=== PATIENT | female | born 1960 | race Caucasian/White ===

== ENCOUNTER 2017-07-30 05:40 | Emergency (ER) | payer MEDICAID ==
[~2017-07-30] VITALS: Ht 165.1 cm; Wt 51.7 kg
[~2017-07-30 05:40] MED LIST: ALBU18HF2 IH; DIPH-423 PO; HYDR-569 PO; PHEN-716 PO
[2017-07-30 05:50] VITALS: BP 126/88
[2017-07-30 07:02] LABS: BASOPHILS % (AUTO) 0.3 % (0-1); EOSINOPHILS # (AUTO) 0.2 X10'3 (0-0.9); HEMATOCRIT 39.4 % (35.0-45.0); LYMPHOCYTES % (AUTO) 11.3 % (21-51); MEAN CORPUSCULAR HEMOGLOBIN 33.1 PG (27.0-31.0); MEAN CORPUSCULAR HGB CONC 35.6 % (33.0-36.5); MEAN CORPUSCULAR VOLUME 92.9 FL (78-98); MONOCYTES # (AUTO) 0.4 X10'3 (0-0.9); MONOCYTES % (AUTO) 4.4 % (2-12); PLATELET COUNT 270 X10'3 (140-440); RED BLOOD COUNT 4.24 X10'6 (4.20-5.60); RED CELL DISTRIBUTION WIDTH 13.7 % (11.5-14.5); WHITE BLOOD COUNT 8.6 X10'3 (4.5-11.0)
[2017-07-30 07:07] LABS: CLARITY,URINE Clear (Clear); COLOR,URINE Yellow (Yellow); GLUCOSE, URINE Negative (Neg); KETONES,URINE 15 mg/dl (Neg); LEUKOCYTE ESTERASE ,URINE Negative (Neg); NITRITES, URINE Negative (Neg); OCCULT BLOOD,URINE Trace-Intact (Neg); PH,URINE 5.5 (4.8-8.0); PROTEIN,URINE 30 mg/dl (Neg)
[2017-07-30 07:09] LABS: UA COLLECTION TYPE CLN CATCH MIDSTREAM
[2017-07-30 07:16] LABS: BACTERIA,URINE NONE SEEN /HPF (Neg); HYALINE CASTS 0-3 /LPF (NEGATIVE); MUCUS STRANDS NONE SEEN /LPF (Neg); RBC,URINE 0-2 /HPF (0-2); SQUAMOUS EPITHELIAL CELL,UR NONE SEEN /LPF (FEW); WBC,URINE NONE SEEN /HPF (0-4)
[2017-07-30 07:18] LABS: URINE AMPHETAMINE SCREEN POSITIVE (Neg); URINE BARBITUATE SCREEN NEGATIVE (Neg); URINE BENZODIAZEPINES SCREEN NEGATIVE (Neg); URINE CANNABINOID SCREEN POSITIVE (Neg); URINE COCAINE SCREEN NEGATIVE (Neg); URINE METHADONE SCREEN NEGATIVE (Neg); URINE OPIATE SCREEN POSITIVE (Neg); URINE PHENCYCLIDINE SCREEN NEGATIVE (Neg)
[2017-07-30 07:26] LABS: ALANINE AMINOTRANSFERASE 32 U/L (12-78); ALBUMIN 4.4 G/DL (3.4-5.0); ALKALINE PHOSPHATASE 151 IU/L (46-116); ANION GAP 12 (8-16); ASPARTATE AMINO TRANSFERASE 31 U/L (10-37); BILIRUBIN,TOTAL 1.2 MG/DL (0.1-1.0); BLOOD UREA NITROGEN 17 MG/DL (7-18); BUN/CREATININE RATIO 24.3 (6.6-38.0); CALCIUM 9.8 MG/DL (8.5-10.1); CHLORIDE 97 MMOL/L (99-107); ETHANOL < 0.010 GM/DL (0.0-0.010); GLUCOSE 78 MG/DL (70-104); POTASSIUM 3.8 MMOL/L (3.5-5.1); SODIUM 138 MMOL/L (135-145); TOTAL CARBON DIOXIDE 29.4 MMOL/L (24-32); TOTAL PROTEIN 8.6 G/DL (6.4-8.2); eGFR 87 ML/MIN
== END 2017-07-30 07:52 | disposition left against medical advice (07) ==
LOC: ER 05:45
DX: F20.9 Schizophrenia, unspecified (principal); G89.29 Other chronic pain; F12.10 Cannabis abuse, uncomplicated; F15.10 Other stimulant abuse, uncomplicated; Z59.0 Homelessness; Z79.899 Other long term (current) drug therapy
CPT/HCPCS: 36415; 80053; 80305; 80320; 81001; 84443; 85025; 99284

== ENCOUNTER 2017-08-04 18:15 | Emergency (ER) | payer MEDICAID ==
[~2017-08-04] VITALS: Ht 165.1 cm; Wt 54.0 kg
[2017-08-04] MEDS ORDERED: albuterol 2.5 MG/3 ML nebule NEB ONE (20:20)
[2017-08-04] MEDS ORDERED: ALBU8.5H8 IH (20:44)
[2017-08-04] MEDS ORDERED: METH4TAB3 PO (20:44)
[2017-08-04] MEDS ORDERED: GUAI600T45 PO (20:44)
[2017-08-04] MEDS ORDERED: AZIT-57 PO (20:44)
[2017-08-04 20:50] VITALS: BP 125/55
== END 2017-08-04 20:50 | disposition home or self-care (01) ==
LOC: ER 18:16
DX: J06.9 Acute upper respiratory infection, unspecified (principal); F10.10 Alcohol abuse, uncomplicated; F15.10 Other stimulant abuse, uncomplicated; J98.01 Acute bronchospasm; F17.200 Nicotine dependence, unspecified, uncomplicated; F12.10 Cannabis abuse, uncomplicated
CPT/HCPCS: 71045; 94640; 94760; 99283

== ENCOUNTER 2017-09-13 12:00 | Emergency (ER) | payer MEDICAID ==
[~2017-09-13 12:00] MED LIST changes: +ALBU8.5H8 IH; +GUAI600T45 PO; +METH4TAB3 PO
== END 2017-09-13 12:30 | disposition left against medical advice (07) ==
LOC: ER 12:01
DX: Z53.21 Procedure and treatment not carried out due to patient leaving prior to being seen by health care provider (principal)

== ENCOUNTER 2017-10-29 18:01 | Emergency (ER) | payer MEDICAID ==
[~2017-10-29] VITALS: Ht 165.1 cm; Wt 49.9 kg
[2017-10-29 18:12] VITALS: BP 123/84
== END 2017-10-29 22:30 | disposition left against medical advice (07) ==
LOC: ER 18:02
DX: M79.675 Pain in left toe(s) (principal); M79.674 Pain in right toe(s); Z53.21 Procedure and treatment not carried out due to patient leaving prior to being seen by health care provider

== ENCOUNTER 2017-10-31 10:40 | Emergency (ER) | payer MEDICAID ==
[~2017-10-31] VITALS: Ht 165.1 cm; Wt 47.0 kg
[2017-10-31 10:42] VITALS: BP 110/72
[2017-10-31] MEDS ORDERED: IBUP-1985 PO (11:25)
== END 2017-10-31 11:27 | disposition home or self-care (01) ==
LOC: ER 10:40
DX: S90.111A Contusion of right great toe without damage to nail, initial encounter (principal); J44.9 Chronic obstructive pulmonary disease, unspecified; G89.29 Other chronic pain; F12.10 Cannabis abuse, uncomplicated; F15.10 Other stimulant abuse, uncomplicated; Z59.0 Homelessness; W22.8XXA Striking against or struck by other objects, initial encounter; Y93.89 Activity, other specified; Y92.89 Other specified places as the place of occurrence of the external cause; Y99.8 Other external cause status
CPT/HCPCS: 99282

== ENCOUNTER 2017-12-28 00:33 | Emergency (ER) | payer MEDICAID ==
[~2017-12-28 00:33] MED LIST changes: +IBUP-1985 PO
== END 2017-12-28 01:35 | disposition left against medical advice (07) ==
LOC: ER 00:34
DX: R50.9 Fever, unspecified (principal); Z53.21 Procedure and treatment not carried out due to patient leaving prior to being seen by health care provider

== ENCOUNTER 2018-09-01 09:03 | Emergency (ER) | payer MEDICAID ==
[~2018-09-01] VITALS: Ht 165.1 cm; Wt 54.5 kg
[~2018-09-01 09:03] MED LIST changes: +HYDR-4383 PO; -HYDR-569 PO
[2018-09-01 09:23] VITALS: BP 126/81
[2018-09-01] MEDS ORDERED: ketorolac tromethamine 15mg/ml inj. IM ONE (09:30)
[2018-09-01] MEDS ORDERED: IBUP-1984 PO (09:44)
== END 2018-09-01 10:08 | disposition home or self-care (01) ==
LOC: ER 09:05
DX: M54.5 Low back pain (principal); J44.9 Chronic obstructive pulmonary disease, unspecified; G89.29 Other chronic pain; F12.90 Cannabis use, unspecified, uncomplicated; F15.90 Other stimulant use, unspecified, uncomplicated; Z59.0 Homelessness
CPT/HCPCS: 96372; 99284; J1885

== ENCOUNTER 2024-03-01 20:03 | Emergency (ER) | payer SELFPAY ==
[~2024-03-01] VITALS: Ht 162.6 cm; Wt 54.5 kg
[~2024-03-01 20:03] MED LIST changes: +ALBU8.5H17 IH; -ALBU8.5H8 IH
[2024-03-01 20:15] VITALS: BP 131/89; PULSE 96; RESP 18; TEMP 98.3; O2SAT 100
== END 2024-03-01 20:44 | disposition home or self-care (01) ==
LOC: ER 20:04
DX: H53.8 Other visual disturbances (principal); J44.9 Chronic obstructive pulmonary disease, unspecified; G89.29 Other chronic pain; F12.90 Cannabis use, unspecified, uncomplicated; F15.90 Other stimulant use, unspecified, uncomplicated; Z79.899 Other long term (current) drug therapy; Z79.1 Long term (current) use of non-steroidal anti-inflammatories (NSAID)
CPT/HCPCS: 99281